=== PATIENT | male | born 1945 | race Caucasian/White ===

== ENCOUNTER 2016-02-13 18:32 | Emergency (ER) | payer MEDICARE, OTHER ==
[~2016-02-13] VITALS: Ht 175.3 cm; Wt 613.7 kg
[~2016-02-13 18:32] MED LIST: ASPIRIN 81MG TA81 MG PO; CARVEDILOL12.5 MG PO; CARVEDILOL6.25 MG PO; FEROSUL325 MG OR; FUROSEMIDE40 MG PO; HABITROL21 MG/24 H TD; K-DUR 20MEQ TA20 MEQ PO; LASIX 40MG. TAB40 MG PO; LISINOPRIL10 MG PO; LISINOPRIL40 MG PO; MAPAP EXTRA ST500 M1 PO; SODIUM CHLORIDE1 GM PO; ZESTRIL40 M1 PO
[2016-02-13] MEDS ORDERED: CLONIDINE 0.2M0.2 MG PO (19:01)
--- NOTE | 2016-02-13 19:02 | Emergency Room Report ---
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 N Clinical Suspician of Infection? N Mental Status: 1 - Regular (Normal Baseline) Sepsis Risk:Low Sepsis Risk Have you (or family members/close friends) recently traveled outside the [place]? N If Yes, where/when: Have you had exposure to infectious disease within the past month? N TB? Other? Specify: Source patient, RN notes reviewed, family, RN/MD Exam Limitations no limitations Comment This is a 70[facility]-old [facility] patient, that was seen in the emergency room on 02/11/16 with similar problems, elevated blood pressure. At the time patient was out of his blood pressure medication, Zestril 40mg, 1 pill daily. Medication was refilled at that time, patient worked up and discharged home with instructions to follow-up with sole ruffer as well as PCP. Patient is returning today, stating that he has taken his medications for blood pressure as directed, however his blood pressure is again elevated, 220/116. Patient is denying any headache, shortness of breath or chest pain at this time. ALLERGIES Coded Allergies: No Known Allergies (12/12/15) Home Medications Active Scripts POTASSIUM CHL (Potassium Chloride) 40 MEQ PO DAILY #30 Ref 1 Prov: 12/15/15 Acetaminophen (Mapap) 500 MG PO Q6HP PRN HEADACHE OR PAIN #30 TAB Ref 2 Prov: 12/15/15 Carvedilol (Carvedilol 6.25MG) 6.25 MG PO BID #60 TAB Ref 2 Prov: 12/15/15 Lisinopril 10 MG PO DAILY #30 TAB Ref 2 Prov: 12/15/15 ASPIRIN (Aspirin) 81 MG PO DAILY #30 Ref 2 Prov: 12/15/15 Nicotine (Nicotine Patch) 21 MG TD DAILYP PRN SMOKING CESSATION #30 Ref 2 Prov: 12/15/15 Furosemide (Lasix 40MG) 40 MG PO BIDL #60 TAB Ref 1 Prov: 12/15/15 Lisinopril (Zestril) 40 MG PO DAILY #30 TAB Ref 1 Prov: 02/11/16 Reported Medications Lisinopril (Lisinopril 40MG) 40 MG PO DAILY Carvedilol 12.5 MG PO BID Sodium Chloride 1 GM PO DAILY Furosemide (Furosemide 40MG) 40 MG PO DAILY Ferrous Sulfate (Ferosul) 325 MG OR DAILY ASPIRIN (Aspirin) 81 MG PO DAILY History Medical History General CAD? Yes Angina: No [place]: No Hypertension? Yes Hyperlipidemia? No CHF? No DVT? No PE? No COPD? No Asthma? No Anemia? No GERD? Yes Gastric ulcers? No GI Bleed? No Hernia? No Thyroid Problems? No Hypothyroidism? No CVA? No Seizures? No Diabetes? No Renal Insuffiency? No End Stage Renal Disease? No UTI? No Stones? No BPH? No GB Disease: No Nephritic Syndrome? No Asplenia? No Hepatitis? No Sickle Cell Disease? No Arthritis? No Migraines? No Cataracts? No Glaucoma? No MRSA? No HIV? No TB? No Anxiety? Yes Depression? No Cancer? No More? No Immunization Hx DT/Tetanus 1-4 Years Ago Flu Refused Pneumonia Refuses Surgical Hx Previous Surgery?Y SHRAPNEL REMOVAL Social History Smoking Hx Smoker: Current Every Day Smoker Tobacco: Yes Type Cigarettes Packs/day 1 1/2 - 2 Packs Alcohol Alcohol: No Review of Systems All Other Systems Reviewed and Negative Comment Concerned with elevated blood pressure Physical Exam Vital Signs Vital Signs Date Time Temp Pulse Resp B/P Pulse O2 O2 Flow FiO2 Ox Delivery Rate 02/12 2033 74 16 149/84 96 02/12 2033 98.6 74 16 149/84 96 02/12 2001 75 16 193/100 97 02/12 1943 80 16 212/107 97 02/12 1908 85 16 205/104 97 02/12 1835 98.6 90 16 215/126 97 General Appearance normal appearance, WD/WN, no apparent distress Eye Exam - bilateral eye normal exam, bilateral eye PERRL, bilateral eye EOMI Neck normal inspection, non-tender, supple, full range of motion Respiratory Status Yes: trachea midline, chest symmetrical, non tender chest. No: respiratory distress. Lung Sounds bilateral: normal breath sounds, lungs clear. 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 No Comment On reevaluation patient appears medically stable, blood pressure significantly improved. Plan is to start the patient on clonidine 0.2 mg BId and have the patient follow-up with his sole ruffer at the [facility] or Dr. Lemus, local sole ruffer affiliated with [facility], within the next 1 -2 days. 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 of ischemic chgs, no ectopy, normal QRS, normal [place], normal EKG, no EKG for comparison, non-spec. ST/Twave chgs, ST elevation, ST depression, LBBB, RBBB, ectopy, abnormal Q waves Departure Departure Time of Disposition 1858 Disposition DC Home or Self Care(routine) Clinical Impression Primary Impression: Hypertension Qualifiers: Hypertension type: essential hypertension Qualified Code: I10 - Essential (primary) hypertension Condition STABLE Referrals Axel Lemus MD: 2 Days-Call Office Patient Instructions Treatments for High Blood Pressure: More Than Just Taking a Pill Additional Instructions Please continue the blood pressure medication already prescribed, Zestril 40 mg daily. You're being prescribed a second blood pressure medication today, clonidine 0.2 mg to be taken 2 times. Restate both medications, as discussed, and follow-up with either Dr. Lemus, locally or your [place] sole ruffer within the next 2 days. Discharge Counseling Counseled pt/family regarding diagnosis, medications/RX, follow up needs Comment Please continue the blood pressure medication already prescribed, Zestril 40 mg daily. You're being prescribed a second blood pressure medication today, clonidine 0.2 mg to be taken 2 times. Restate both medications, as discussed, and follow-up with either Dr. Lemus, [facility] or your [facility] sole ruffer within the next 2 days. Prescriptions Current Visit Scripts Clonidine Hcl (Clonidine) 0.3 MG PO BID #60 TAB ED Critical Care Critical Care No at [id number]
--- NOTE | 2016-02-13 19:02 | Emergency Room Report ---
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 N Clinical Suspician of Infection? N Mental Status: 1 - Regular (Normal Baseline) Sepsis Risk:Low Sepsis Risk Have you (or family members/close friends) recently traveled outside the [place]? N If Yes, where/when: Have you had exposure to infectious disease within the past month? N TB? Other? Specify: Source patient, RN notes reviewed, family, RN/MD Exam Limitations no limitations Comment This is a 70[facility]year-old [facility] patient, that was seen in the emergency room on 02/11/16 with similar problems, elevated blood pressure. At the time patient was out of his blood pressure medication, Zestril 40mg, 1 pill daily. Medication was refilled at that time, patient worked up and discharged home with instructions to follow-up with proced tech as well as PCP. Patient is returning today, stating that he has taken his medications for blood pressure as directed, however his blood pressure is again elevated, 220/116. Patient is denying any headache, shortness of breath or chest pain at this time. ALLERGIES Coded Allergies: No Known Allergies (12/12/15) Home Medications Active Scripts POTASSIUM CHL (Potassium Chloride) 40 MEQ PO DAILY #30 Ref 1 Prov: 12/15/15 Acetaminophen (Mapap) 500 MG PO Q6HP PRN HEADACHE OR PAIN #30 TAB Ref 2 Prov: 12/15/15 Carvedilol (Carvedilol 6.25MG) 6.25 MG PO BID #60 TAB Ref 2 Prov: 12/15/15 Lisinopril 10 MG PO DAILY #30 TAB Ref 2 Prov: 12/15/15 ASPIRIN (Aspirin) 81 MG PO DAILY #30 Ref 2 Prov: 12/15/15 Nicotine (Nicotine Patch) 21 MG TD DAILYP PRN SMOKING CESSATION #30 Ref 2 Prov: 12/15/15 Furosemide (Lasix 40MG) 40 MG PO BIDL #60 TAB Ref 1 Prov: 12/15/15 Lisinopril (Zestril) 40 MG PO DAILY #30 TAB Ref 1 Prov: 02/11/16 Reported Medications Lisinopril (Lisinopril 40MG) 40 MG PO DAILY Carvedilol 12.5 MG PO BID Sodium Chloride 1 GM PO DAILY Furosemide (Furosemide 40MG) 40 MG PO DAILY Ferrous Sulfate (Ferosul) 325 MG OR DAILY ASPIRIN (Aspirin) 81 MG PO DAILY History Medical History General CAD? Yes Angina: No [place]: No Hypertension? Yes Hyperlipidemia? No CHF? No DVT? No PE? No COPD? No Asthma? No Anemia? No GERD? Yes Gastric ulcers? No GI Bleed? No Hernia? No Thyroid Problems? No Hypothyroidism? No CVA? No Seizures? No Diabetes? No Renal Insuffiency? No End Stage Renal Disease? No UTI? No Stones? No BPH? No GB Disease: No Nephritic Syndrome? No Asplenia? No Hepatitis? No Sickle Cell Disease? No Arthritis? No Migraines? No Cataracts? No Glaucoma? No MRSA? No HIV? No TB? No Anxiety? Yes Depression? No Cancer? No More? No Immunization Hx DT/Tetanus 1-4 Years Ago Flu Refused Pneumonia Refuses Surgical Hx Previous Surgery?Y SHRAPNEL REMOVAL Social History Smoking Hx Smoker: Current Every Day Smoker Tobacco: Yes Type Cigarettes Packs/day 1 1/2 - 2 Packs Alcohol Alcohol: No Review of Systems All Other Systems Reviewed and Negative Comment Concerned with elevated blood pressure Physical Exam Vital Signs Vital Signs Date Time Temp Pulse Resp B/P Pulse O2 O2 Flow FiO2 Ox Delivery Rate 02/12 2033 74 16 149/84 96 02/12 2033 98.6 74 16 149/84 96 02/12 2001 75 16 193/100 97 02/12 1943 80 16 212/107 97 02/12 1908 85 16 205/104 97 02/12 1835 98.6 90 16 215/126 97 General Appearance normal appearance, WD/WN, no apparent distress Eye Exam - bilateral eye normal exam, bilateral eye PERRL, bilateral eye EOMI Neck normal inspection, non-tender, supple, full range of motion Respiratory Status Yes: trachea midline, chest symmetrical, non tender chest. No: respiratory distress. Lung Sounds bilateral: normal breath sounds, lungs clear. 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 No Comment On reevaluation patient appears medically stable, blood pressure significantly improved. Plan is to start the patient on clonidine 0.2 mg BId and have the patient follow-up with his proced tech at the [facility] or Dr. Lemus, local proced tech affiliated with [facility], within the next 1 -2 days. Results/Orders Current Medication Orders Sig/Chris Start time Last Medication Dose Route Stop Time Status Admin Clonidine HCl 0.2 MG ONCE ONE 02/13 1944 DC 02/12 PO 02/12 Clonidine HCl 0 .STK-MED ONE 02/13 1944 DC .ROUTE Clonidine HCl 0.2 MG ONCE ONE 02/12 184 DC 02/12 PO 02/12 1845 184 Clonidine HCl 0 .STK-MED ONE 02/12 183 DC .ROUTE CM/EKG CM/assistant program manager Rhythm Normal Sinus Rhythm Rate 85 Ectopy No Comments No acute ischemic changes EKG rate, NSR, rhythm, no evid. of ischemic chgs, no ectopy, normal QRS, normal [place], normal EKG, no EKG for comparison, non-spec. ST/Twave chgs, ST elevation, ST depression, LBBB, RBBB, ectopy, abnormal Q waves Departure Departure Time of Disposition 1858 Disposition DC Home or Self Care(routine) Clinical Impression Primary Impression: Hypertension Qualifiers: Hypertension type: essential hypertension Qualified Code: I10 - Essential (primary) hypertension Condition STABLE Referrals Axel Lemus MD: 2 Days-Call Office Patient Instructions Treatments for High Blood Pressure: More Than Just Taking a Pill Additional Instructions Please continue the blood pressure medication already prescribed, Zestril 40 mg daily. You're being prescribed a second blood pressure medication today, clonidine 0.2 mg to be taken 2 times. Restate both medications, as discussed, and follow-up with either Dr. Lemus, locally or your [place] proced tech within the next 2 days. Discharge Counseling Counseled pt/family regarding diagnosis, medications/RX, follow up needs Comment Please continue the blood pressure medication already prescribed, Zestril 40 mg daily. You're being prescribed a second blood pressure medication today, clonidine 0.2 mg to be taken 2 times. Restate both medications, as discussed, and follow-up with either Dr. Lemus, [facility] or your [facility] proced [facility] within the next 2 days. Prescriptions Current Visit Scripts Clonidine Hcl (Clonidine) 0.3 MG PO BID #60 TAB ED Critical Care Critical Care No at 0917
[2016-02-13] MEDS ORDERED: CLONIDINE HYDR0.3 MG PO (19:42)
[2016-02-13 20:34] VITALS: BP 149/84
[2016-02-17] MEDS ORDERED: CLONIDINE HYDR0.3 MG PO (18:53)
== END 2016-02-13 20:35 | disposition home or self-care (01) ==
LOC: ER 18:32
DX: I10 Essential (primary) hypertension (principal); I25.10 Atherosclerotic heart disease of native coronary artery without angina pectoris; K21.9 Gastro-esophageal reflux disease without esophagitis; Z72.0 Tobacco use

== ENCOUNTER 2016-03-13 17:05 | Emergency (ER) | payer OTHER, MEDICARE ==
[~2016-03-13] VITALS: Ht 175.3 cm; Wt 62.6 kg
[~2016-03-13 17:05] MED LIST changes: +CLONIDINE 0.2M0.2 MG PO; +CLONIDINE HYDR0.3 MG PO
--- NOTE | 2016-03-13 17:30 | Emergency Room Report ---
History of Present Illness Time Seen by [id number] Presenting Problem in Triage Pt arrived:Walked Presenting Problem:HYPERTENSION AT HOME. 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 N Clinical Suspician of Infection? N Mental Status: 1 - Regular (Normal Baseline) Sepsis Risk:Low Sepsis Risk Have you (or family members/close friends) recently traveled outside the [place]? N If Yes, where/when: Have you had exposure to infectious disease within the past month? TB? Other? Specify: Source patient, RN notes reviewed Exam Limitations no limitations Comment This is a 70-year-old male who presents to the emergency department for asymptomatic hypertension. He states that his blood pressure routinely goes up and down and is quite unpredictable. Currently he is on clonidine and lisinopril for his blood pressure. [facility]. Today he was seen by home health pressure and told him to come to the emergency room to be evaluated. He specifically denies any visual changes, lateralizing motor or sensory changes, chest pain, shortness of air, abdominal pain, hematuria. He denies any recent illnesses and feels in his baseline health. ALLERGIES Coded Allergies: No Known Allergies (03/13/16) Home Medications Active Scripts Acetaminophen (Mapap) 500 MG PO Q6HP PRN HEADACHE OR PAIN #30 TAB Ref 2 Prov: 12/15/15 Reported Medications Lisinopril (Lisinopril 40MG) 40 MG PO DAILY Carvedilol 12.5 MG PO BID Furosemide (Furosemide 40MG) 40 MG PO DAILY ASPIRIN (Aspirin) 81 MG PO DAILY Clonidine Hcl (Clonidine) 0.3 MG PO TID History Medical History General CAD? Yes Angina: No [place]: No Hypertension? Yes Hyperlipidemia? No CHF? No DVT? No PE? No COPD? No Asthma? No Anemia? No GERD? Yes Gastric ulcers? No GI Bleed? No Hernia? No Thyroid Problems? No Hypothyroidism? No CVA? No Seizures? No Diabetes? No Renal Insuffiency? No End Stage Renal Disease? No UTI? No Stones? No BPH? No GB Disease: No Nephritic Syndrome? No Asplenia? No Hepatitis? No Sickle Cell Disease? No Arthritis? No Migraines? No Cataracts? No Glaucoma? No MRSA? No HIV? No TB? No Anxiety? Yes Depression? No Cancer? No More? No Immunization Hx Ped.Immunizations UTD Yes DT/Tetanus 1-4 Years Ago Flu Refused Pneumonia Refuses Surgical Hx Previous Surgery?Y SHRAPNEL REMOVAL Social History Smoking Hx Smoker: Current Every Day Smoker Tobacco: Yes Type Cigarettes Packs/day 1 1/2 - 2 Packs Alcohol Alcohol: No Review of Systems All Other Systems Reviewed and Negative Physical Exam Vital Signs Vital Signs Date Time Temp Pulse Resp B/P Pulse O2 O2 Flow FiO2 Ox Delivery Rate 03/13 1715 98.0 81 18 211/122 98 03/13 1710 98.0 79 18 218/104 99 General Appearance normal appearance, WD/WN Eye Exam - bilateral eye normal exam, bilateral eye PERRL, bilateral eye EOMI Neck normal inspection, non-tender, supple, full range of motion Respiratory Status Yes: chest symmetrical, non tender chest. No: respiratory distress. Lung Sounds bilateral: normal breath sounds, lungs clear. Cardiovascular normal exam, regular rate/rhythm, no peripheral edema, no gallop, no JVD, no murmur, no rub, normal peripheral pulses Peripheral Pulses Pulses normal Yes Gastrointestinal normal bowel sounds, normal exam, non tender Back normal inspection, no CVA tenderness, no vertebral tenderness Neurologic alert, no motor/sensory deficits, oriented x 3 Skin intact, normal color, warm/dry Medical Decision Making LABS/Meds/Orders Pt receiving controlled substance in ED? No Departure Departure Disposition DC Home or Self Care(routine) Clinical Impression Primary Impression: Asymptomatic hypertension Condition STABLE Additional Instructions Return to the emergency department if you develop any chest pain, lightheadedness, visual changes, motor or sensory changes in your extremities shortness of air. Otherwise, follow-up on Friday with your primary care provider appointment as scheduled. ED Critical Care Critical Care No Comments Patient is here with asymptomatic hypertension. He specifically denies any other symptomology consistent with acute end organ damage. He was having his blood pressure checked routinely by home health who noted that it was high and sent him here for evaluation. He is alert, appropriate and has primary care follow-up within 48 hours scheduled. According to a [facility] clinical policy, there is no need at this time to treat asymptomatic hypertension in the emergency room with appropriate short-term follow-up, which he already has scheduled. Discharged home. at [id number]
--- NOTE | 2016-03-13 17:30 | Emergency Room Report ---
History of Present Illness Time Seen by [id number] Presenting Problem in Triage Pt arrived:Walked Presenting Problem:HYPERTENSION AT HOME. 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 N Clinical Suspician of Infection? N Mental Status: 1 - Regular (Normal Baseline) Sepsis Risk:Low Sepsis Risk Have you (or family members/close friends) recently traveled outside the [place]? N If Yes, where/when: Have you had exposure to infectious disease within the past month? TB? Other? Specify: Source patient, RN notes reviewed Exam Limitations no limitations Comment This is a 70-year-old male who presents to the emergency department for asymptomatic hypertension. He states that his blood pressure routinely goes up and down and is quite unpredictable. Currently he is on clonidine and lisinopril for his blood pressure. [facility]. Today he was seen by home health pressure and told him to come to the emergency room to be evaluated. He specifically denies any visual changes, lateralizing motor or sensory changes, chest pain, shortness of air, abdominal pain, hematuria. He denies any recent illnesses and feels in his baseline health. ALLERGIES Coded Allergies: No Known Allergies (03/13/16) Home Medications Active Scripts Acetaminophen (Mapap) 500 MG PO Q6HP PRN HEADACHE OR PAIN #30 TAB Ref 2 Prov: 12/15/15 Reported Medications Lisinopril (Lisinopril 40MG) 40 MG PO DAILY Carvedilol 12.5 MG PO BID Furosemide (Furosemide 40MG) 40 MG PO DAILY ASPIRIN (Aspirin) 81 MG PO DAILY Clonidine Hcl (Clonidine) 0.3 MG PO TID History Medical History General CAD? Yes Angina: No [place]: No Hypertension? Yes Hyperlipidemia? No CHF? No DVT? No PE? No COPD? No Asthma? No Anemia? No GERD? Yes Gastric ulcers? No GI Bleed? No Hernia? No Thyroid Problems? No Hypothyroidism? No CVA? No Seizures? No Diabetes? No Renal Insuffiency? No End Stage Renal Disease? No UTI? No Stones? No BPH? No GB Disease: No Nephritic Syndrome? No Asplenia? No Hepatitis? No Sickle Cell Disease? No Arthritis? No Migraines? No Cataracts? No Glaucoma? No MRSA? No HIV? No TB? No Anxiety? Yes Depression? No Cancer? No More? No Immunization Hx Ped.Immunizations UTD Yes DT/Tetanus 1-4 Years Ago Flu Refused Pneumonia Refuses Surgical Hx Previous Surgery?Y SHRAPNEL REMOVAL Social History Smoking Hx Smoker: Current Every Day Smoker Tobacco: Yes Type Cigarettes Packs/day 1 1/2 - 2 Packs Alcohol Alcohol: No Review of Systems All Other Systems Reviewed and Negative Physical Exam Vital Signs Vital Signs Date Time Temp Pulse Resp B/P Pulse O2 O2 Flow FiO2 Ox Delivery Rate 03/13 1715 98.0 81 18 211/122 98 03/13 1710 98.0 79 18 218/104 99 General Appearance normal appearance, WD/WN Eye Exam - bilateral eye normal exam, bilateral eye PERRL, bilateral eye EOMI Neck normal inspection, non-tender, supple, full range of motion Respiratory Status Yes: chest symmetrical, non tender chest. No: respiratory distress. Lung Sounds bilateral: normal breath sounds, lungs clear. Cardiovascular normal exam, regular rate/rhythm, no peripheral edema, no gallop, no JVD, no murmur, no rub, normal peripheral pulses Peripheral Pulses Pulses normal Yes Gastrointestinal normal bowel sounds, normal exam, non tender Back normal inspection, no CVA tenderness, no vertebral tenderness Neurologic alert, no motor/sensory deficits, oriented x 3 Skin intact, normal color, warm/dry Medical Decision Making LABS/Meds/Orders Pt receiving controlled substance in ED? No Departure Departure Disposition DC Home or Self Care(routine) Clinical Impression Primary Impression: Asymptomatic hypertension Condition STABLE Additional Instructions Return to the emergency department if you develop any chest pain, lightheadedness, visual changes, motor or sensory changes in your extremities shortness of air. Otherwise, follow-up on Friday with your primary care provider appointment as scheduled. ED Critical Care Critical Care No Comments Patient is here with asymptomatic hypertension. He specifically denies any other symptomology consistent with acute end organ damage. He was having his blood pressure checked routinely by home health who noted that it was high and sent him here for evaluation. He is alert, appropriate and has primary care follow-up within 48 hours scheduled. According to a [facility] clinical policy, there is no need at this time to treat asymptomatic hypertension in the emergency room with appropriate short-term follow-up, which he already has scheduled. Discharged home. at [id number]
[2016-03-13 17:33] VITALS: BP 190/111
== END 2016-03-13 17:38 | disposition home or self-care (01) ==
LOC: ER 17:05
DX: I10 Essential (primary) hypertension (principal); K21.9 Gastro-esophageal reflux disease without esophagitis; Z72.0 Tobacco use